=== PATIENT | female | born 1965 | race Caucasian/White ===

== ENCOUNTER 2019-05-04 22:28 | Emergency (ER) | payer MEDICAID ==
[~2019-05-04] VITALS: Ht 152.4 cm; Wt 97.6 kg
[2019-05-04] MEDS ORDERED: ketorolac trometh inj. 60 MG/2 ML VIAL IM ONE (23:55)
--- NOTE | 2019-05-05 00:15 | NUR ---
XRAY OF LEFT FOOT COMPLETED, JUST GIVEN TORADOL 30 MG IM. PT WITH FRIEND AT BEDSIDE. STABLE VS.
[2019-05-05] MEDS ORDERED: IBUP-1985 PO (01:02)
[2019-05-05 01:13] VITALS: BP 141/52
== END 2019-05-05 01:14 | disposition home or self-care (01) ==
LOC: ER 22:28
DX: M77.52 Other enthesopathy of left foot and ankle (principal); Z88.5 Allergy status to narcotic agent; Z79.899 Other long term (current) drug therapy
CPT/HCPCS: 73610; 96372; 99283; J1885

== ENCOUNTER 2020-01-12 04:14 | Emergency (ER) | payer MEDICAID ==
[~2020-01-12] VITALS: Ht 152.4 cm; Wt 101.7 kg
[~2020-01-12 04:14] MED LIST: IBUP-1985 PO
--- NOTE | 2020-01-12 05:00 | NUR ---
PT COMPLAINED OF 4/10 "BRIEF" CHEST PAIN WITH LEFT ARM RADIATION. PT CURRENTLY DENIES ANY CHEST PAIN NOW. MARTINA FERNANDEZ INFORMED AND VERBAL ORDER FOR 12 LEAD EKG TAKEN
[2020-01-12 05:30] LABS: BASOPHILS % (AUTO) 0.4 % (0-1); EOSINOPHILS # (AUTO) 0.1 X10'3 (0-0.9); EOSINOPHILS % (AUTO) 1.8 % (0-6); HEMATOCRIT 41.9 % (35.0-45.0); HEMOGLOBIN 14.2 g/dl (12.0-16.0); LYMPHOCYTES # (AUTO) 3.5 X10'3 (1.1-4.8); LYMPHOCYTES % (AUTO) 46.3 % (21-51); MEAN CORPUSCULAR HEMOGLOBIN 30.4 PG (27.0-31.0); MEAN CORPUSCULAR HGB CONC 33.9 g/dL (33.0-36.5); MEAN CORPUSCULAR VOLUME 89.8 FL (78-98); MEAN PLATELET VOLUME 9.2 FL (7.4-10.4); MONOCYTES # (AUTO) 0.6 X10'3 (0-0.9); NEUTROPHILS # (AUTO) 3.3 X10'3 (1.8-7.7); NEUTROPHILS % (AUTO) 43.5 % (42-75); PLATELET COUNT 226 X10'3 (140-440); RED BLOOD COUNT 4.67 X10'6 (4.20-5.60); WHITE BLOOD COUNT 7.6 X10'3 (4.5-11.0)
[2020-01-12 05:37] LABS: CLARITY,URINE SLIGHTLY CLOUDY (Clear); COLOR,URINE YELLOW (Yellow); GLUCOSE, URINE NEGATIVE (Neg); KETONES,URINE NEGATIVE (Neg); LEUKOCYTE ESTERASE ,URINE NEGATIVE (Neg); NITRITES, URINE NEGATIVE (Neg); OCCULT BLOOD,URINE SMALL (Neg); PH,URINE 5.5 (4.8-8.0); PROTEIN,URINE NEGATIVE (Neg)
[2020-01-12 05:42] LABS: ALANINE AMINOTRANSFERASE 17 U/L (12-78); ALBUMIN 3.3 G/DL (3.4-5.0); ALKALINE PHOSPHATASE 122 IU/L (46-116); ANION GAP 5 (8-16); ASPARTATE AMINO TRANSFERASE 10 U/L (10-37); BILIRUBIN,TOTAL 0.3 MG/DL (0.1-1.0); BLOOD UREA NITROGEN 16 MG/DL (7-18); BUN/CREATININE RATIO 17.6 (6.6-38.0); CALCIUM 8.5 MG/DL (8.5-10.1); CHLORIDE 110 MMOL/L (99-107); CREATININE 0.91 MG/DL (0.40-0.90); GLUCOSE 129 MG/DL (70-104); POTASSIUM 3.7 MMOL/L (3.5-5.1); SODIUM 145 MMOL/L (135-145); TOTAL CARBON DIOXIDE 30.3 MMOL/L (24-32); TOTAL PROTEIN 6.5 G/DL (6.4-8.2); eGFR 64 ML/MIN
--- NOTE | 2020-01-12 06:30 | NUR ---
Patient resting with eyes closed, no s/sx of distress.
[2020-01-12 06:36] LABS: UA COLLECTION TYPE CLN CATCH MIDSTREAM
[2020-01-12 06:37] LABS: RBC,URINE 0-2 /HPF (0-2); WBC,URINE 0-4 /HPF (0-4)
[2020-01-12 06:40] LABS: AMORPHOUS URATES 1+; BACTERIA,URINE 1+ /HPF (Neg); MUCUS STRANDS NONE SEEN /LPF (Neg); SQUAMOUS EPITHELIAL CELL,UR FEW /LPF (FEW)
--- NOTE | 2020-01-12 07:30 | NUR ---
No s/sx of distress noted, resting with eyes closed.
[2020-01-12] MEDS ORDERED: iohexol 350MG/ML 100ml bottle IV ONE (08:07)
--- NOTE | 2020-01-12 08:49 | NUR ---
Labs being drawn. Patient resting in bed, no s/sx of distress noted.
[2020-01-12] MEDS ORDERED: dexamethasone sod phosphate 10mg/ml inj IV STA (09:22)
--- NOTE | 2020-01-12 09:23 | NUR ---
Patient back from CT scan, Dr Vitale at bedside to assess for allergic reaction to IV contrast. Patient red, swollen, anxious, states she can't breath, SPO2 95% on room air, states her lips are swollen, nauseous.
[2020-01-12] MEDS ORDERED: diphenhydrAMINE 50 mg/ml inj IV ONE (09:25)
--- NOTE | 2020-01-12 09:29 | NUR ---
AFTER COMPLETING THE CT SCAN, THE PATIENT SNEEZED TWICE AND THEN BECAME VERY ITCHY AND RED, FELT LIKE HER HANDS WERE SWELLING. PT WAS TAKEN BACK QUICKLY TO THE ER AND THE RN AND ORDERING MD NOTIFIED IMMEDIATELY.
--- NOTE | 2020-01-12 09:30 | NUR ---
Patient anxious and states her skin feels tight. Patient appears to have had a reaction to contrast, MD at bedside, ordered IV benadryl and IV steroid. Will cont. to monitor.
--- NOTE | 2020-01-12 09:54 | NUR ---
contact Jose Mathis @ [phone] in rgards to warehouse order picker and update
--- NOTE | 2020-01-12 10:39 | NUR ---
GOT UP TO BR, WORE NON SLIP HOSPITAL SOCKS, TOLERATED WELL.
[2020-01-12 11:30] VITALS: BP 132/74
== END 2020-01-12 11:37 | disposition home or self-care (01) ==
LOC: ER 04:15
DX: R60.0 Localized edema (principal); T50.8X5A Adverse effect of diagnostic agents, initial encounter; R07.89 Other chest pain; M79.602 Pain in left arm; Z88.5 Allergy status to narcotic agent; Z91.041 Radiographic dye allergy status; Z79.899 Other long term (current) drug therapy; Y92.89 Other specified places as the place of occurrence of the external cause
CPT/HCPCS: 36415; 71045; 71275; 80053; 81001; 84484; 85025; 85610; 93005; 93970; 96374; 96375; 99285; J1100; J1200; Q9967

== ENCOUNTER 2021-01-24 15:59 | Outpatient (CLI) | payer MEDICAID | END 2021-01-24 23:59 | disposition home or self-care (01) | LOC: RT 15:59 | DX: R06.02 Shortness of breath (principal) | CPT/HCPCS: 94010 ==

== ENCOUNTER 2021-08-29 15:36 | Outpatient (CLI) | payer MEDICAID ==
[~2021-08-29] VITALS: Ht 152.4 cm; Wt 101.6 kg
[2021-08-29] MEDS ORDERED: albuterol 2.5 MG/3 ML nebule NEB PRN (16:30)
== END 2021-08-29 23:59 | disposition home or self-care (01) ==
LOC: RT 15:36
PROVIDERS: ATTEND Family Medicine
DX: J45.909 Unspecified asthma, uncomplicated (principal); Z87.891 Personal history of nicotine dependence; Z79.82 Long term (current) use of aspirin; Z79.899 Other long term (current) drug therapy
CPT/HCPCS: 94060; 94727; 94729; 94760

== ENCOUNTER 2024-01-01 21:12 | Emergency (ER) | payer MEDICAID ==
[~2024-01-01] VITALS: Ht 152.4 cm; Wt 108.9 kg
[2024-01-02 00:25] VITALS: BP 136/74; PULSE 84; RESP 18; TEMP 98.6; O2SAT 95
== END 2024-01-01 22:59 | disposition home or self-care (01) ==
LOC: ER 21:13
DX: M25.562 Pain in left knee (principal); Z88.0 Allergy status to penicillin; Z88.5 Allergy status to narcotic agent; Z91.041 Radiographic dye allergy status; Z79.1 Long term (current) use of non-steroidal anti-inflammatories (NSAID)
CPT/HCPCS: 73562; 99283

== ENCOUNTER 2024-05-17 13:30 | Outpatient (CLI) | payer MEDICAID | END 2024-05-17 23:59 | disposition home or self-care (01) | LOC: MRI02 13:30 | PROVIDERS: ATTEND Family Medicine | DX: S83.412A Sprain of medial collateral ligament of left knee, initial encounter (principal); S83.242A Other tear of medial meniscus, current injury, left knee, initial encounter; M25.562 Pain in left knee; X58.XXXA Exposure to other specified factors, initial encounter; Y93.89 Activity, other specified; Y92.89 Other specified places as the place of occurrence of the external cause; Y99.8 Other external cause status; M71.22 Synovial cyst of popliteal space [Baker], left knee | CPT/HCPCS: 73721 ==